=== PATIENT | male | born 1985 | race Caucasian/White ===

== ENCOUNTER 2016-09-26 11:03 | Emergency (ER) | payer OTHER ==
[2016-09-26 11:18] VITALS: BMI 27.8
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
[2016-09-26] MEDS ORDERED: traMADol HCL 50 MG TABLET ONE (11:45)
[2016-09-26] MEDS: traMADol HCL 50 MG TABLET PO ONE (11:48)
[2016-09-26] MEDS ORDERED: OXYCODONE/APAP 5/325MG COMBO TABLET ONE (12:40)
[2016-09-26] MEDS: OXYCODONE/APAP 5/325MG COMBO TABLET PO ONE (12:51)
[2016-09-26] MEDS ORDERED: morphine CARPU-JECT 2 MG/1 ML DISP.SYRIN ONE ×2 (14:20→15:37)
[2016-09-26] MEDS: morphine CARPU-JECT 4 MG/1 ML DISP.SYRIN IM ONE (14:23)
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
[2016-09-26] MEDS: morphine CARPU-JECT 2 MG/1 ML DISP.SYRIN IVPUSH ONE (15:39)
[2016-09-26 15:54] VITALS: BP 137/94; PULSE 85; TEMP 97.1
== END 2016-09-26 16:15 | disposition short-term general hospital (02) ==
LOC: JER 11:03
PROC: 3E023NZ Introduction of Analgesics, Hypnotics, Sedatives into Muscle, Percutaneous Approach (ICD-10-PCS; principal; 2016-09-26)
PROC: 3E033NZ Introduction of Analgesics, Hypnotics, Sedatives into Peripheral Vein, Percutaneous Approach (ICD-10-PCS; 2016-09-26)
DX: S82.124A Nondisplaced fracture of lateral condyle of right tibia, initial encounter for closed fracture (principal); S60.222A Contusion of left hand, initial encounter; S60.221A Contusion of right hand, initial encounter; S40.812A Abrasion of left upper arm, initial encounter; S40.811A Abrasion of right upper arm, initial encounter; V13.4XXA Pedal cycle driver injured in collision with car, pick-up truck or van in traffic accident, initial encounter; Y92.414 Local residential or business street as the place of occurrence of the external cause; Y93.55 Activity, bike riding; Y99.8 Other external cause status
CPT/HCPCS: 73562-TC-LT; 73700-TC-RT; 99281-25